=== PATIENT | female | born 1970 | race Caucasian/White ===

== ENCOUNTER → 2020-08-10 10:11 | Outpatient (BNVA) | payer OTHER, SELFPAY | PROVIDERS: PCP Internal Medicine Medical Oncology; Referring Provider Internal Medicine Medical Oncology; Visit Provider Surgery | DX: C50.912 Malignant neoplasm of unspecified site of left female breast (principal) | CPT/HCPCS: 99212 ==

== ENCOUNTER 2020-09-26 12:42 | Outpatient (REF) | payer OTHER, SELFPAY ==
--- NOTE | 2020-09-26 16:02 | MHC.AU.P13 ---
Adult Audiological Evaluation Date of Visit: 09/26/20 Reason for Appointment: Audiological re-evaluation to monitor the status of Ms. Calabrese's hearing loss. She has a history of sudden sensorineural hearing loss in the left ear, which occurred ~10 years ago. She feels like her hearing may have improved, but notes that her left ear sounds muffled. She denies any changes to her medical history. Does patient feel they have a hearing loss?: Yes If Yes, Which Ear?: Left Ear When Was Hearing Difficulty First Noticed?: ~ 10 years ago, sudden onset Has hearing been tested previously?: Yes Previous Hearing Test Results: [facility] [place], 09/24/2019- In the right ear, mild low-frequency SNHL, rising to normal, and sloping to a mild SNHL. In the left ear, severe rising to moderate SNHL, with no speech discrimination ability. Ear History: Bothersome Tinnitus/Ringing/Noises in Ears: Both Ears Medical History: Medical History: Breast cancer Otoscopy: Right Ear: Unremarkable Left Ear: Unremarkable Tympanometry: Tympanometry performed due to: Patient report of problem with sound quality/clarity Right Ear: Normal Middle Ear System (Type A) Left Ear: Normal Middle Ear System (Type A) Hearing Evaluation: Transducer(s) Used:Insert Earphones, Bone Conduction Method: Conventional Audiometry Stimuli Used: Pure Tones Right Ear: Description of Hearing: Normal hearing from 250-4000 Hz, sloping to a mild hearing loss from 3774-2583 Hz. Left Ear: Description of Hearing: Severe sensorineural hearing loss from 250-3000 Hz, rising to a moderately severe sensorineural hearing loss at 6354-7994 Hz, and a moderate hearing loss at 8000 Hz. Speech Recognition Threshold (SRT): Method Used: Monitored Live Voice Stimuli Used: Spondee Words Right Ear: 10 dBHL Left Ear: 100 dBHL with masking Word Discrimination: Method: Recorded Lists Word Lists Used: NU-6 Right Ear: 100% at 50 dBHL Left Ear: CNT, patient could not understand single-syllable words. Comparison: Compared to the most recent evaluation: Thresholds have improved in the right ear. Compared to the most recent evaluation: 10-20 dB improvement in hearing from 250-2000 Hz in the right ear. Left ear is stable. Recommendations: Audiological re-evaluation in one year. Ms. Calabrese may benefit from use of a CROS hearing aid system in order to provide speech and sound awareness from her left side. She is not interested in pursuing a CROS system at this time. Diagnosis: Primary Diagnosis: H90.3 Bilateral Sensorineural Hearing Loss Services Performed: Services Performed: Comprehensive Audiological Evaluation (CPT 60284) Tympanometry (CPT 96313) Signature: Provider: Mal Early, CCC-A
== END 2020-09-26 12:43 | disposition home or self-care (01) ==
LOC: HO.SH 12:42
PROVIDERS: Visit Provider Internal Medicine Medical Oncology
DX: H90.3 Sensorineural hearing loss, bilateral (principal)
CPT/HCPCS: 92557; 92567

== ENCOUNTER 2021-02-20 16:02 | Outpatient (REF) | payer OTHER, SELFPAY ==
[2021-02-20 16:22] LABS: MANUAL DIFF FLAG NO
[2021-02-20 16:26] LABS: Basophils Percent Auto 0.4 % (0-2); Eosinophils Absolute Auto 0.2 X10*3/uL (0.0-0.4); Eosinophils Percent Auto 2.5 % (0-4); Hematocrit 37.6 % (37-47); Hemoglobin 12.2 g/dl (12.0-16.0); Imm Gran Abs Auto 0.03 X10*3/uL (0.00-0.03); Imm Gran Pct Auto 0.4 % (0.0-0.4); Lymphocytes Percent Auto 39.6 % (20-40); Mean Corpuscular HGB Conc 32.4 g/dl (31.0-35.0); Mean Corpuscular Hemoglobin 29.4 pg (27.0-33.0); Mean Corpuscular Volume 90.6 fL (80-98); Monocytes Absolute Auto 0.5 X10*3/uL (0.1-1.2); Monocytes Percent Auto 6.4 % (2-11); Neutrophils Absolute Auto 3.9 X10*3/uL (2.0-8.3); Neutrophils Percent Auto 50.7 % (45-73); Platelet Count 257 X10*3/uL (160-400); Red Blood Count 4.15 X10*6/uL (4.20-5.50); Red Cell Distribution Width 15.3 % (11.0-16.0); White Blood Count 7.7 X10*3/uL (4.8-10.8)
[2021-02-20 16:55] LABS: Alanine Aminotransferase 13 U/L (0-31); Albumin Level 4.2 g/dL (3.5-5.0); Alkaline Phosphatase 95 U/L (39-117); Anion Gap 12 (12-20); Aspartate Amino Transferase 18 U/L (5-31); Bilirubin Total < 0.2 mg/dL (0.0-1.0); Blood Urea Nitrogen 17 mg/dL (9-16); Calcium 9.2 mg/dL (8.4-10.2); Carbon Dioxide 26 mmol/L (22-29); Chloride 107 mmol/L (96-108); Estimated Glomerular Filt Rate 45; Glucose Random 95 mg/dL (60-115); Potassium 4.3 mmol/L (3.3-5.1); Sodium 141 mmol/L (135-145); Total Protein 6.8 g/dL (6.5-8.0)
[2021-02-20 18:03] LABS: Erythrocyte Sedimentation Rate 2 MM/HR (0-20)
[2021-02-21 12:57] LABS: CA 27.29 37 U/mL (<38)
== END 2021-02-20 16:03 | disposition home or self-care (01) ==
LOC: HO.LAB 16:02
PROVIDERS: PCP Internal Medicine Medical Oncology; Visit Provider Internal Medicine Medical Oncology
DX: C50.412 Malignant neoplasm of upper-outer quadrant of left female breast (principal)
CPT/HCPCS: 36415; 80053; 85025; 85652; 86300

== ENCOUNTER 2021-02-23 10:13 | Outpatient (REF) | payer OTHER, SELFPAY ==
--- NOTE | ~2021-02-23 | MM_ITS ---
EXAMINATION: MM DIAGNOSTIC DIGITAL BREAST TOMOSYNTHESIS, BILATERAL CLINICAL INFORMATION: Bilateral screening mammography with history of left breast cancer in 2018. COMPARISON: Mammography: February 22, 2020 and studies dating back to January 24, 2015 TECHNIQUE: Digital breast tomosynthesis is performed in both the craniocaudal and mediolateral oblique views along with computer-aided detection (CAD). Synthesized 2D images are generated from the tomosynthesis. FINDINGS: There are scattered areas of fibroglandular density (ACR BI-RADS breast composition Category b). There are no new significant masses, abnormal calcifications, or other abnormalities. Postsurgical architectural distortion seen within the left breast. Results are provided to the patient at time of visit by the technologist. MM/MM tomosynthesis diagnostic BI IMPRESSION: There are no significant changes from prior study. ASSESSMENT: BI-RADS 2: Benign RECOMMENDATION: Routine annual mammography screening due in 12 months. This patient's information was entered into a reminder system with a target due date for their next mammogram.
== END 2021-02-23 10:14 | disposition home or self-care (01) ==
LOC: HO.MAMMO 10:13
PROVIDERS: PCP Internal Medicine Medical Oncology; Visit Provider Surgery
DX: C50.919 Malignant neoplasm of unspecified site of unspecified female breast (principal)
CPT/HCPCS: 77062; 77066

== ENCOUNTER → 2021-02-28 09:58 | Outpatient (BNVA) | payer OTHER, SELFPAY | PROVIDERS: PCP Internal Medicine Medical Oncology; Visit Provider Surgery | DX: C50.912 Malignant neoplasm of unspecified site of left female breast (principal); Z79.810 Long term (current) use of selective estrogen receptor modulators (SERMs) | CPT/HCPCS: 99212 ==

== ENCOUNTER → 2021-03-01 10:06 | Outpatient (BNVA) | payer OTHER, SELFPAY | PROVIDERS: Visit Provider Obstetrics & Gynecology ==

== ENCOUNTER 2021-08-29 09:17 | Outpatient (REF) | payer OTHER, SELFPAY ==
[2021-08-29 10:14] LABS: MANUAL DIFF FLAG NO
[2021-08-29 10:18] LABS: Basophils Percent Auto 0.5 % (0-2); Eosinophils Absolute Auto 0.2 X10*3/uL (0.0-0.4); Eosinophils Percent Auto 2.9 % (0-4); Hematocrit 38.4 % (37.0-47.0); Hemoglobin 12.6 g/dl (12.0-16.0); Imm Gran Abs Auto 0.03 X10*3/uL (0.00-0.03); Imm Gran Pct Auto 0.5 % (0.0-0.4); Lymphocytes Absolute Auto 2.7 X10*3/uL (1.2-4.9); Lymphocytes Percent Auto 46.1 % (20-40); Mean Corpuscular HGB Conc 32.8 g/dl (31.0-35.0); Mean Corpuscular Hemoglobin 29.6 pg (27.0-33.0); Mean Corpuscular Volume 90.1 fL (80.0-98.0); Mean Platelet Volume 10.6 fL (9.4-12.3); Monocytes Absolute Auto 0.4 X10*3/uL (0.1-1.2); Monocytes Percent Auto 6.9 % (2-11); Neutrophils Absolute Auto 2.6 x10*3/uL (2.0-8.3); Neutrophils Percent Auto 43.1 % (45-73); Platelet Count 312 X10*3/uL (160-400); Red Blood Count 4.26 X10*6/uL (4.20-5.50); Red Cell Distribution Width 14.9 % (11.0-16.0); White Blood Count 5.9 X10*3/uL (4.8-10.8)
[2021-08-29 10:54] LABS: Alanine Aminotransferase 25 U/L (0-31); Alkaline Phosphatase 80 U/L (39-117); Anion Gap 11 (12-20); Aspartate Amino Transferase 24 U/L (5-31); Bilirubin Total < 0.2 mg/dL (0.0-1.0); Blood Urea Nitrogen 10 mg/dL (9-16); Calcium 9.6 mg/dL (8.4-10.2); Carbon Dioxide 29 mmol/L (22-29); Chloride 108 mmol/L (96-108); Cholesterol 161 mg/dL; Estimated Glomerular Filt Rate > 60; Glucose Fasting 76 mg/dL (60-99); HDL Cholesterol 53 mg/dL; LDL Cholesterol Calculated 69 mg/dl; Potassium 4.8 mmol/L (3.3-5.1); Sodium 143 mmol/L (135-145); Total Protein 6.5 g/dL (6.5-8.0); Triglycerides 198 mg/dL
== END 2021-08-29 09:18 | disposition home or self-care (01) ==
LOC: HO.10HDL 09:17
PROVIDERS: PCP Internal Medicine Medical Oncology; Visit Provider Internal Medicine Medical Oncology
DX: C50.412 Malignant neoplasm of upper-outer quadrant of left female breast (principal); E66.9 Obesity, unspecified; Z87.891 Personal history of nicotine dependence
CPT/HCPCS: 36415; 80053; 80061; 85025

== ENCOUNTER → 2021-09-05 09:56 | Outpatient (BNVA) | payer OTHER, SELFPAY | PROVIDERS: PCP Internal Medicine Medical Oncology; Visit Provider Surgery | DX: C50.912 Malignant neoplasm of unspecified site of left female breast (principal) | CPT/HCPCS: 99212 ==

== ENCOUNTER 2021-10-02 12:53 | Outpatient (REF) | payer OTHER, SELFPAY ==
--- NOTE | ~2021-10-02 | US_ITS ---
EXAMINATION: US SOFT TISSUE NECK CLINICAL INFORMATION: History of breast cancer. Left supraclavicular node. COMPARISON: None TECHNIQUE: Ultrasound of the neck soft tissues is performed with high- frequency dooley-scale imaging and color Doppler. FINDINGS: There is a small lymph node seen in the left supraclavicular region where a clinical lump is noted measuring 0.8 x 0.6 x 0.3 cm. There is normal homogeneous echotexture of the lymph node. US/US soft tiss head and/or neck IMPRESSION: Normal-appearing 0.8 cm lymph node in the left supraclavicular space where patient clinically feels a lump. 2. If clinically indicated further evaluation of the neck soft tissues and nodes may be performed with CT soft tissue neck with intravenous contrast.
== END 2021-10-02 12:54 | disposition home or self-care (01) ==
LOC: HO.US 12:53
PROVIDERS: Visit Provider Surgery
DX: C50.912 Malignant neoplasm of unspecified site of left female breast (principal)
CPT/HCPCS: 76536

== ENCOUNTER 2022-02-27 10:52 | Outpatient (REF) | payer OTHER, SELFPAY ==
--- NOTE | ~2022-02-27 | MM_ITS ---
EXAMINATION: MM SCREENING DIGITAL BREAST TOMOSYNTHESIS, BILATERAL CLINICAL INFORMATION: Screening. Asymptomatic. Left invasive ductal cancer status post lumpectomy 10/23/2017. COMPARISON: Mammography: 02/23/2021, 02/22/2020, 02/16/2019, 10/23/2017, 10/01/2017, 09/24/2017, 08/31/2016. TECHNIQUE: Digital breast tomosynthesis is performed in both the craniocaudal and mediolateral oblique views along with computer-aided detection (CAD). Synthesized 2D images are generated from the tomosynthesis. Additional exaggerated left CC view is provided. FINDINGS: There are scattered areas of fibroglandular density (ACR BI-RADS breast composition Category b). There are stable post therapy changes left breast with mild reduced breast size and stable scarring. Biopsy clip marker again seen on the right mid 3:00 position. There is no interval mass or architectural abnormality or developing density. No abnormal calcifications. The axilla are unremarkable. No significant changes. MM/MM tomosynthesis screening BI IMPRESSION: -No mammographic evidence of malignancy. -Post therapy changes left breast. ASSESSMENT: BI-RADS 2: Benign RECOMMENDATION: Routine annual mammography screening. This patient's information was entered into a reminder system with a target due date for their next mammogram.
== END 2022-02-27 10:53 | disposition home or self-care (01) ==
LOC: HO.MAMMO 10:52
PROVIDERS: PCP Internal Medicine Medical Oncology; Visit Provider Surgery
DX: Z12.31 Encounter for screening mammogram for malignant neoplasm of breast (principal)
CPT/HCPCS: 77063; 77067

== ENCOUNTER → 2022-03-01 10:26 | Outpatient (BNVA) | payer OTHER, SELFPAY | PROVIDERS: PCP Internal Medicine Medical Oncology; Visit Provider Surgery | DX: C50.912 Malignant neoplasm of unspecified site of left female breast (principal); Z79.810 Long term (current) use of selective estrogen receptor modulators (SERMs); Z17.0 Estrogen receptor positive status [ER+] | CPT/HCPCS: 99212 ==

== ENCOUNTER 2023-12-23 10:55 | Outpatient (REF) | payer OTHER, SELFPAY ==
--- NOTE | ~2023-12-23 | MM_ITS ---
EXAMINATION: MM SCREENING DIGITAL BREAST TOMOSYNTHESIS, BILATERAL CLINICAL INFORMATION: Screening. Asymptomatic. The patient is status post conservation therapy for left breast cancer diagnosed in 2018. COMPARISON: Mammography: This study is compared with prior exams dating back to 2019. TECHNIQUE: Digital breast tomosynthesis is performed in both the craniocaudal and mediolateral oblique views along with computer-aided detection (CAD). Synthesized 2D images are generated from the tomosynthesis. FINDINGS: There are scattered areas of fibroglandular density (ACR BI-RADS breast composition Category b). There are no significant masses, abnormal calcifications, or other abnormalities. There is tissue marker in the right breast from prior benign percutaneous biopsy. There are postsurgical changes in the periareolar region of the left breast. MM/MM tomosynthesis screening BI IMPRESSION: No mammographic evidence of malignancy. ASSESSMENT: BI-RADS BI-RADS 2 - Benign Findings RECOMMENDATION: Routine annual mammography screening. 1 year F/U This examination should not preclude the clinical evaluation of a suspicious palpable abnormality. This patient's information was entered into a reminder system with a target due date for their next mammogram.
== END 2023-12-23 10:56 | disposition home or self-care (01) ==
LOC: HO.MAMMO 10:55
PROVIDERS: PCP Internal Medicine Medical Oncology; Visit Provider Internal Medicine Medical Oncology
DX: Z12.31 Encounter for screening mammogram for malignant neoplasm of breast (principal)
CPT/HCPCS: 77063; 77067

== ENCOUNTER → 2023-12-23 11:30 | Outpatient (BNV) | payer OTHER, SELFPAY | PROVIDERS: PCP Internal Medicine Medical Oncology; Visit Provider Radiology Diagnostic Radiology | DX: Z12.31 Encounter for screening mammogram for malignant neoplasm of breast (principal) | CPT/HCPCS: 77063; 77067 ==

== ENCOUNTER 2024-03-25 10:34 | Outpatient (REF) | payer OTHER, SELFPAY ==
[2024-03-25 12:27] LABS: MANUAL DIFF FLAG NO
[2024-03-25 12:36] LABS: Basophils Absolute Auto 0.1 X10*3/uL (0.0-0.2); Basophils Percent Auto 0.9 % (0-2); Eosinophils Absolute Auto 0.1 X10*3/uL (0.0-0.4); Eosinophils Percent Auto 1.1 % (0-4); Hematocrit 41.7 % (37.0-47.0); Hemoglobin 13.4 g/dl (12.0-16.0); Imm Gran Abs Auto 0.06 X10*3/uL (0.00-0.03); Imm Gran Pct Auto 0.7 % (0.0-0.4); Lymphocytes Percent Auto 37.6 % (20-40); Mean Corpuscular HGB Conc 32.1 g/dl (31.0-35.0); Mean Corpuscular Hemoglobin 32.5 pg (27.0-33.0); Mean Corpuscular Volume 101.2 fL (80.0-98.0); Mean Platelet Volume 10.6 fL (9.4-12.3); Monocytes Absolute Auto 0.5 X10*3/uL (0.1-1.2); Monocytes Percent Auto 6.2 % (2-11); Neutrophils Absolute Auto 4.3 x10*3/uL (2.0-8.3); Neutrophils Percent Auto 53.5 % (45-73); Platelet Count 610 X10*3/uL (160-400); Red Blood Count 4.12 X10*6/uL (4.20-5.50); Red Cell Distribution Width 15.3 % (11.0-16.0); White Blood Count 8.1 X10*3/uL (4.8-10.8)
[2024-03-25 13:37] LABS: Alanine Aminotransferase 27 U/L (0-31); Albumin Level 4.1 g/dL (3.5-5.0); Alkaline Phosphatase 115 U/L (39-117); Anion Gap 13 (12-20); Aspartate Amino Transferase 37 U/L (5-31); Bilirubin Total 0.2 mg/dL (0.0-1.0); Blood Urea Nitrogen 9 mg/dL (9-16); Calcium 10.1 mg/dL (8.4-10.2); Carbon Dioxide 30 mmol/L (22-29); Chloride 101 mmol/L (96-108); Estimated Glomerular Filt Rate > 60; Potassium 4.1 mmol/L (3.3-5.1); Sodium 140 mmol/L (135-145); Total Protein 7.6 g/dL (6.5-8.0)
[2024-03-25 14:01] LABS: Glucose Random 59 mg/dL (60-115)
== END 2024-03-25 10:35 | disposition home or self-care (01) ==
LOC: HO.10HDL 10:34
PROVIDERS: Visit Provider Internal Medicine Medical Oncology
DX: F32.9 Major depressive disorder, single episode, unspecified (principal); N94.6 Dysmenorrhea, unspecified
CPT/HCPCS: 36415; 80053; 85025

== ENCOUNTER 2025-01-20 10:51 | Outpatient (REF) | payer OTHER, SELFPAY ==
--- OUTSIDE RECORDS SUMMARY | 2025-01-20 11:57 | XMS_ITS ---
Author Organization Matteo Horton III, MD Address [address] [place] [address] Care Team Providers Care Mold Yarn Supervisor Name Role Phone Matteo Horton Primary Care Provider Allergies Allergen (clinical drug ingredient) Drug/Non Drug Allergy documented on EMR Reaction Allergy Type Onset Date Status Seasonale Unknown Drug Allergy Active REASON FOR VISIT follow up Medications Medication SIG (Take, Route, Frequency, Duration) Notes Start Date End Date Status Naltrexone HCl 50 MG 1 tablet Orally Once a day Active QUEtiapine Fumarate ER 400 MG 1 tablet in the evening Orally Once a day Active Tamoxifen Citrate 20 MG TAKE 1 TABLET BY MOUTH EVERY DAY Active cloNIDine HCl 0.1 MG 1 tablet Orally Once a day Active Omeprazole 20 MG 1 capsule 30 minutes before morning meal Orally Once a day Active QUEtiapine Fumarate 100 MG 1 tablet at b edtime Orally 100mg in the AM, 100mg in the PM, 300mg at bed time Active busPIRone HCl 10 MG 2 tablet Orally Twic e a day Active Gabapentin 300 MG 2 capsule Orally at bed time Active Lidocaine 5 % APPLY 1 PATCH DAILY EXTERNALLY AND REMOVE AFTER 12 HOURS FOR 30 DAYS. Active Social History Tobacco Use: Social History Observation Description Date Details (start date - stop date) Former Smoker NA - NA Sex Assigned At : Social History Observation Description Sex Assigned At Female Tobacco Use/Smoking Question Answer Notes Patient is a former smoker How long has it been since y ou last smoked? 1-5 years Additional Findings: Tobacco User Light cigarett e smoker ((1-9 cigs/day) Additional Findings: Tobacco Non-User Ex-cigaret te smoker Encounters Encounter Location Date Provider Diagnosis Matteo Horton III, MD [address] [place] [address] [place] [address] 06/03/2024 Matteo Horton Depression F32.9 Assessments Encounter Date Diagnosis (ICD Code) Assessment Notes Treatment Notes Treatment Clinical Notes 06/03/2024 Depression (ICD-10 - F32.9) Plan Of Treatment Medication Medication Name Sig Start Date Stop Date Notes Naltrexone HCl 50 MG 1 tablet Orally Once a day 03/27/2024 QUEtiapine Fumarate ER 400 MG 1 tablet i n the evening Orally Once a day Tamoxifen Citrate 20 MG TAKE 1 TABLET BY MOUTH EVERY DAY cloNIDine HCl 0.1 MG 1 tablet Orally Once a day Omeprazole 20 MG 1 capsule 30 minutes before morning meal Orally Once a day QUEtiapine Fumarate 100 MG 1 tablet at b edtime Orally 100mg in the AM, 100mg in the PM, 300mg at bed time busPIRone HCl 10 MG 2 tablet Orally Twice a day Gabapentin 300 MG 2 capsule Orally at bed time Lidocaine 5 % APPLY 1 PATCH DAILY EXTERNALLY AND REMOVE AFTER 12 HOURS FOR 30 DAYS. Next Appt Details Provider Name:Matteo Horton, 07/27/2025 10:30:00 AM, [address] [place] [address] [address], [place], [address], Provider Name:Matteo Horton, 01/21/2026 10:30:00 AM, [address] [place] [address] [address], [place], [address], Progress Notes * Tonja MONTEIRODOB:1970 (54 yo F)Acc No.[id number]:06/03/2024 Progress Notes Patient:?Tonja MONTEIRO Provider:?Matteo Horton MD :1970???Age:53 Y???Sex:Female D ate:06/03/2024 Address:[address] [place] [id number] Subjective: * Chief Complaints: * ???1. Follow up. * HPI: ???COVID-19 Screening:?Questions?Have you had any new onset fever, chills, cough, congestion, sore throat, shortness of breath, muscle aches??No ?Have you been exposed to the virus within the last 10 days??No ?Have you travelled internationally in the last 10 days??No ?Have you been exposed to COVID-19 in the past??No * ROS:?General/Constitutional:?pain?only normal aches and pains.?Chills?denies.?Fatigue?admits.?Fever?denies.?ENT:?Decreased hearing?denies.?Respiratory:?Cough?denies.?Cardiovascular:?Chest pain with exertion?denies.?Dyspnea on exertion?denies.?Shortness of breath?denies.?Gastrointestinal:?Constipation?denies.?Decreased appetite?denies.?Diarrhea?denies.?Heartburn?denies.?Nausea?denies.?Rectal bleeding?denies.?Vomiting?denies.?Hematology:?bruising?denies.?petechiae?denies.?Swollen glands?none have been noted.?Genitourinary:?Frequent urination?denies.?Musculoskeletal:?Muscle aches?denies.?Painful joints?denies.?Sciatica?denies.?Weakness?denies.?Skin:?Itching?denies.?Rash?denies.?Skin lesion(s)?denies.?Neurologic:?Difficulty speaking?denies.?Dizziness?denies.?Headache?denies.?Low back pain?denies.?Psychiatric:?Depressed mood?denies.? 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 * Surgical History:?2 C-Sectio ns [id number], lmp july 201406/2014, left breast biopsy, benign 06/2014, surgical repair metatarsal fracture right foot 05/2015, left breast lumpectomy and sentinel node 09/2017, foot right surgery 12/08/2021. * Hospitalization/Major Diagno stic Procedure:?Denies Past Hospitalization. * Family History:?Father: dece ased 83 yrs, emphysema, dementia.?Mother: 57 yrs, hypertension, diagnosed with HTN.?6 brother(s) , 9 sister(s) . 2 son(s) , 2 daughter(s) - healthy. .? A brother has diabetes mellitus. fr emphysema, mr kiarra,. * Social History:?Tobacco Use:?Tobacco Use/Smoking?Patient is a?former smoker ?How long has it been since you last smoked??1-5 years ?Additional Findings: Tobacco User?Light cigarette smoker ((1-9 cigs/day) ?Additional Findings: Tobacco Non-User?Ex-cigarette smoker ???She does not take drugs or drink alcohol. She is a single attain a woman who's preferred language is Urdu. She is currently unemployed. She has 4 children and 3 grandchildren. * Medications:?Taking Lidocain e 5 % Patch APPLY 1 PATCH DAILY EXTERNALLY AND REMOVE AFTER 12 HOURS FOR 30 DAYS. , Taking Gabapentin 300 MG Capsule 2 capsule Orally at bed time , Taking busPIRone HCl 10 MG Tablet 2 tablet Orally Twice a day , Taking QUEtiapine Fumarate 100 MG Tablet 1 tablet at bedtime Orally 100mg in the AM, 100mg in the PM, 300mg at bed time , Taking cloNIDine HCl 0.1 MG Tablet 1 tablet Orally Once a day , Taking Tamoxifen Citrate 20 MG Tablet TAKE 1 TABLET BY MOUTH EVERY DAY , Taking QUEtiapine Fumarate ER 400 MG Tablet Extended Release 24 Hour 1 tablet in the evening Orally Once a day , Taking Naltrexone HCl 50 MG Tablet 1 tablet Orally Once a day , stop date 10/22/2024, Taking Omeprazole 20 MG Capsule Delayed Release 1 capsule 30 minutes before morning meal Orally Once a day , Medication List reviewed and reconciled with the patient * Allergies:?Seasonale. Objective: * Vitals:? * Examination: ???General Examination: ?GENERAL APPEARANCE:?pleasant, well nourished, well developed, in no acute distress, calm and relaxed.?HEAD:?atraumatic, normocephalic.?EYES:?eomi, perrla, anicteric, conjugate.?EARS:?normal.?NOSE:?septum intact.?ORAL CAVITY:?normal, unremarkable.?NECK/THYROID:?no jugular venous distention, no carotid bruit, thyroid normal.?LYMPH NODES:?no enlarged lymph nodes,spleen normal.?SKIN:?no suspicious lesions, anicteric.?HEART:?no clicks, gallops, murmurs, or rubs, regular rhythm, S1, S2 normal, no s3, or vascular bruits.?LUNGS:?clear to auscultation .?BREASTS:??no masses palpable bilaterally.?ABDOMEN:?bowel sounds normal, no ascites, no organomegaly, no mass.?RECTAL EXAM:?not examined.?MUSCULOSKELETAL:?extremities unremarkable, no clubbing, cyanosis or edema.?PERIPHERAL PULSES:?normal.?NEUROLOGIC:?alert and oriented, cranial nerves 2-12 grossly intact, deep tendon reflexes 2+ symmetrical, motor strength normal upper and lower extremities, sensory exam intact.?PSYCH:?alert, oriented.? Assessment: * Assessment: 1.?Depression - F32.9??? Plan: * Treatment: 2.?Others? Continue Lidocaine Patch, 5 %, APPLY 1 PATCH DAILY EXTERNALLY AND REMOVE AFTER 12 HOURS FOR 30 DAYS.;?Continue Gabapentin Capsule, 300 MG, 2 capsule, Orally, at bed time;?Continue busPIRone HCl Tablet, 10 MG, 2 tablet, Orally, Twice a day;?Continue QUEtiapine Fumarate Tablet, 100 MG, 1 tablet at bedtime, Orally, 100mg in the AM, 100mg in the PM, 300mg at bed time;?Continue cloNIDine HCl Tablet, 0.1 MG, 1 tablet, Orally, Once a day;?Continue Tamoxifen Citrate Tablet, 20 MG, TAKE 1 TABLET BY MOUTH EVERY DAY.?? * Images: * The named appointment provid er may or may not be the originator of this progress note, and it is not deemed complete until electronically signed by the appointment provider. Sign off status: Pending * Provider:?Matteo Horton MD Date:?04/2024 Generated for Bora kidd/Ifrah/Joshua on:?01/20/2025 11:57 AM EDT History and Physical Notes * HPI (History of Present Illness) Category Sub-Category Detail Notes COVID-19 Screening Questions Have you had any new onset fever, chills, cough, congestion, sore throat, shortness of breath, muscle aches?: No Have you been exposed to the virus withi n the last 10 days?: No Have you travelled internationally in e last 10 days?: No Have you been exposed to COVID-19 in the past?: No Examination Category Sub-Category Detail Notes General Examination GENERAL APPEARANCE: pleasant , well nourished, well developed, in no acute distress, calm and relaxed HEAD: atraumatic, normocep halic EYES: eomi, perrla, anicte kassi, conjugate EARS: normal NOSE: septum intact NECK/THYROID: no jugular venous di stention, no carotid bruit, thyroid normal HEART: no clicks, gallops, murmurs, or rubs, regular rhythm, S1, S2 normal, no s3, or vascular bruits LUNGS: clear to auscultatio n ABDOMEN: bowel sounds normal, no ascites, no organomegaly, no mass NEUROLOGIC: alert and oriented, cranial nerves 2-12 grossly intact, deep tendon reflexes 2+ symmetrical, motor strength normal upper and lower extremities, sensory exam intact SKIN: no suspicious lesion s, anicteric PERIPHERAL PULSES: normal BREASTS: no masses palpable b ilaterally MUSCULOSKELETAL: extremities unremark able, no clubbing, cyanosis or edema LYMPH NODES: no enlarged lymph no vladislav,spleen normal RECTAL EXAM: not examined PSYCH: alert, oriented ORAL CAVITY: normal, unremarkable
[2025-01-20 13:05] LABS: MANUAL DIFF FLAG NO
[2025-01-20 13:10] LABS: Basophils Percent Auto 0.6 % (0-2); Eosinophils Absolute Auto 0.1 X10*3/uL (0.0-0.4); Eosinophils Percent Auto 1.9 % (0-4); Hematocrit 39.1 % (37.0-47.0); Hemoglobin 13.1 g/dl (12.0-16.0); Imm Gran Abs Auto 0.07 X10*3/uL (0.00-0.03); Imm Gran Pct Auto 1.3 % (0.0-0.4); Lymphocytes Absolute Auto 2.2 X10*3/uL (1.2-4.9); Mean Corpuscular HGB Conc 33.5 g/dl (31.0-35.0); Mean Corpuscular Hemoglobin 31.6 pg (27.0-33.0); Mean Corpuscular Volume 94.2 fL (80.0-98.0); Mean Platelet Volume 10.6 fL (9.4-12.3); Monocytes Absolute Auto 0.4 X10*3/uL (0.1-1.2); Neutrophils Absolute Auto 2.6 x10*3/uL (2.0-8.3); Neutrophils Percent Auto 48.2 % (45-73); Platelet Count 295 X10*3/uL (160-400); Red Blood Count 4.15 X10*6/uL (4.20-5.50); Red Cell Distribution Width 21.5 % (11.0-16.0); White Blood Count 5.4 X10*3/uL (4.8-10.8)
[2025-01-20 13:26] LABS: Alanine Aminotransferase 50 U/L (0-31); Albumin Level 4.2 g/dL (3.5-5.0); Alkaline Phosphatase 149 U/L (39-117); Anion Gap 14 (12-20); Aspartate Amino Transferase 110 U/L (5-31); Bilirubin Total 0.5 mg/dL (0.0-1.0); Blood Urea Nitrogen 4 mg/dL (9-16); Calcium 9.4 mg/dL (8.4-10.2); Carbon Dioxide 30 mmol/L (22-29); Chloride 100 mmol/L (96-108); Cholesterol 235 mg/dL (<200); Estimated Glomerular Filt Rate > 60; Glucose Fasting 84 mg/dL (60-99); HDL Cholesterol 113 mg/dL (>40); LDL Cholesterol Calculated 113 mg/dL (<100); Potassium 3.5 mmol/L (3.3-5.1); Sodium 140 mmol/L (135-145); Total Protein 7.1 g/dL (6.5-8.0); Triglycerides 46 mg/dL (<150)
== END 2025-01-20 10:52 | disposition home or self-care (01) ==
LOC: HO.10HDL 10:51
PROVIDERS: Visit Provider Internal Medicine Medical Oncology
DX: E66.3 Overweight (principal); F32.9 Major depressive disorder, single episode, unspecified
CPT/HCPCS: 36415; 80053; 80061; 85025

== ENCOUNTER 2025-01-27 09:21 | Outpatient (REF) | payer OTHER, SELFPAY ==
--- OUTSIDE RECORDS SUMMARY | 2025-01-27 09:45 | XMS_ITS ---
Author Organization Matteo Horton III, MD Address [address] [place] [address] Care Team Providers Care Payroll Tax Specialist Name Role Phone Matteo Horton Primary Care [...] Date Provider Diagnosis Matteo Horton III, MD [address] [place] [address] [place] [address] 06/03/2024 Matteo Horton Depression F32.9 Assessments Encounter [...] Details Provider Name:Matteo Horton, 07/27/2025 10:30:00 AM, [address] [place] [address] [address], [place], [phone], Provider Name:Matteo Horton, 01/21/2026 10:30:00 AM, [address] [place] [address] [address], [place], [address], Progress Notes * Tonja MONTEIRODOB:1970 (54 yo F)Acc No.[id number]:06/03/2024 Progress Notes Patient:?Tonja MONTEIRO Provider:?Matteo Horton MD :1970???Age:53 Y???Sex:Female D ate:06/03/2024 Address:[address] [place] [id number] Subjective: * Chief Complaints: * ???1. Follow [...] 01, 2017. * Surgical History:?2 C-Sectio ns [id number], lmp july 201406/2014, left breast biopsy, benign [...] attain a woman who's preferred language is Indonesian. She is currently unemployed. She has 4 [...] Horton MD Date:?04/2024 Generated for Bora kidd/Ifrah/Joshua on:?01/27/2025 09:44 AM EDT History and Physical Notes * [...]
== END 2025-01-27 09:22 | disposition home or self-care (01) ==
LOC: HO.MAMMO 09:21
PROVIDERS: PCP Internal Medicine Medical Oncology; Visit Provider Internal Medicine Medical Oncology
DX: Z12.31 Encounter for screening mammogram for malignant neoplasm of breast (principal)
CPT/HCPCS: 77063; 77067

== ENCOUNTER → 2025-01-27 11:30 | Outpatient (BNV) | payer OTHER, SELFPAY | PROVIDERS: PCP Internal Medicine Medical Oncology; Visit Provider Internal Medicine | DX: Z12.31 Encounter for screening mammogram for malignant neoplasm of breast (principal) | CPT/HCPCS: 77063; 77067 ==